=== PATIENT | female | born 1965 | race American Indian/Alaskan Native ===

== ENCOUNTER 2021-01-07 15:23 | Emergency (ER) | payer MEDICARE ==
[2021-01-07] MEDS ORDERED: HYDROcodone/ACETAMINOPHEN 5-325 MG TAB PO ONE (16:26)
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
[2021-01-07 18:16] VITALS: BP 153/93
== END 2021-01-07 19:09 | disposition home or self-care (01) ==
LOC: ED 15:23
DX: S16.1XXA Strain of muscle, fascia and tendon at neck level, initial encounter (principal); S39.012A Strain of muscle, fascia and tendon of lower back, initial encounter; S80.01XA Contusion of right knee, initial encounter; S50.11XA Contusion of right forearm, initial encounter; S09.90XA Unspecified injury of head, initial encounter; Z91.040 Latex allergy status; Z88.8 Allergy status to other drugs, medicaments and biological substances; Z79.899 Other long term (current) drug therapy; V89.2XXA Person injured in unspecified motor-vehicle accident, traffic, initial encounter; Y93.89 Activity, other specified; Y92.488 Other paved roadways as the place of occurrence of the external cause; Y99.8 Other external cause status
CPT/HCPCS: 70450; 72100; 72125; 99284

== ENCOUNTER 2022-01-15 11:12 | Emergency (ER) | payer MEDICARE ==
[2022-01-15 12:12] VITALS: BP 146/90
--- NOTE | 2022-01-16 09:38 | Electrocardiograph Report ---
[facility] Test Date: 2022-01-15 Test Time: 12:16:16 Pat Name: NONA LÓPEZ Department: Room: Gender: F Adjunct History Instructor: TALAT : 1965 Requested By: SANDI AVILA Order Number: [id number] Reading MD: Melvin Barr Measurements Intervals [place] Rate: 60 P: 48 FL: 181 QRS: 35 QRSD: 84 T: 42 QT: 394 QTc: 395 Interpretive Statements Sinus rhythm No previous ECG available for comparison Electronically Signed On 01-16-2022 9:38:45 EDT by Melvin Barr
== END 2022-01-15 21:52 | disposition left against medical advice (07) ==
LOC: ED 11:12
DX: Z04.1 Encounter for examination and observation following transport accident (principal); Z53.21 Procedure and treatment not carried out due to patient leaving prior to being seen by health care provider; V89.2XXA Person injured in unspecified motor-vehicle accident, traffic, initial encounter; Y93.89 Activity, other specified; Y92.89 Other specified places as the place of occurrence of the external cause; Y99.8 Other external cause status
CPT/HCPCS: 93005